=== PATIENT | female | born 1950 | race Native Hawaiian/Other Pacific Islander ===

== ENCOUNTER 2021-03-11 15:18 | Outpatient (CLI) | payer OTHER, BC | END 2021-03-11 19:25 | disposition home or self-care (01) | LOC: RAD 15:18 | PROVIDERS: ATTEND Internal Medicine | DX: R05.3 Chronic cough (principal) ==

== ENCOUNTER 2021-04-20 15:05 | Outpatient (CLI) | payer BC | END 2021-04-20 19:05 | disposition home or self-care (01) | LOC: RAD 15:05 | PROVIDERS: ATTEND Internal Medicine | DX: R91.1 Solitary pulmonary nodule (principal) ==

== ENCOUNTER 2021-05-13 11:09 | Outpatient (CLI) | payer BC | END 2021-05-13 19:10 | disposition home or self-care (01) | LOC: CT 11:09 | PROVIDERS: ATTEND Internal Medicine | DX: R91.1 Solitary pulmonary nodule (principal) | CPT/HCPCS: 36415; 82565; 84520; Q9963 ==

== ENCOUNTER 2021-07-13 13:13 | Outpatient (CLI) | payer BC | END 2021-07-13 19:13 | disposition home or self-care (01) | LOC: CT 13:13 | PROVIDERS: ATTEND Internal Medicine Sleep Medicine | DX: J47.9 Bronchiectasis, uncomplicated (principal) ==

== ENCOUNTER 2021-09-21 13:09 | Outpatient (CLI) | payer BC | END 2021-09-21 19:31 | disposition home or self-care (01) | LOC: CT 13:09 → LABW 13:09 → CT 19:31 | PROVIDERS: ATTEND Internal Medicine Sleep Medicine | DX: J47.9 Bronchiectasis, uncomplicated (principal) | CPT/HCPCS: 87070; 87205 ==

== ENCOUNTER 2022-03-02 13:21 | Outpatient (CLI) | payer BC | END 2022-03-02 19:15 | disposition home or self-care (01) | LOC: RAD 13:21 | PROVIDERS: ATTEND Internal Medicine | DX: Z13.820 Encounter for screening for osteoporosis (principal); M85.88 Other specified disorders of bone density and structure, other site; N95.8 Other specified menopausal and perimenopausal disorders; N95.1 Menopausal and female climacteric states ==